=== PATIENT | male | born 1970 | race Caucasian/White ===

== ENCOUNTER 2016-05-08 03:14 | Emergency (ER) | payer BC ==
[~2016-05-08] VITALS: Ht 180.3 cm; Wt 87.0 kg
[2016-05-08 03:38] VITALS: BP 149/90; PULSE 64; RESP 25; TEMP 98.4; O2SAT 100
[2016-05-08 03:42] VITALS: BP 149/90; PULSE 70; RESP 25; O2SAT 100
[2016-05-08] MEDS ORDERED: SODIUM CHLOR 0.9% 1000 ML INJ 1,000 ML IV ONE (04:15)
[2016-05-08 04:16] LABS: AUTOMATED NEUTROPHIL # 3.2 TH/MM3 (1.8-7.7); BASOPHIL % 0.4 % (0.0-2.0); EOSINOPHIL # 0.1 TH/MM3 (0-0.4); HEMATOCRIT 42.9 % (39.0-51.0); HEMO FLAGS DIFF FINAL; LYMPH % 34.6 % (9.0-44.0); LYMPHOCYTE # 2.1 TH/MM3 (1.0-4.8); MEAN CELL VOLUME 93.4 FL (80.0-100.0); MEAN CORPUSCULAR HEMOGLOBIN 32.7 PG (27.0-34.0); MONO % 10.5 % (0.0-8.0); NEUT % 52.5 % (16.0-70.0); PLATELET COUNT 173 TH/MM3 (150-450); RED CELL DISTRIBUTION WIDTH 12.4 % (11.6-17.2)
[2016-05-08 04:27] LABS: APTT (PATIENT) 23.8 SEC (24.3-30.1); PROTHROMBIN TIME - PATIENT 10.5 SEC (9.8-11.6)
[2016-05-08 04:36] LABS: ALT (GPT) 30 U/L (12-78); ANION GAP 10 MEQ/L (5-15); AST (GOT) 28 U/L (15-37); BICARBONATE 24.9 MEQ/L (21.0-32.0); BLOOD UREA NITROGEN 24 MG/DL (7-18); CHLORIDE 106 MEQ/L (98-107); GLOMERULAR FILTRATION RATE 68 ML/MIN (>89); MAGNESIUM 1.9 MG/DL (1.5-2.5); POTASSIUM 3.6 MEQ/L (3.5-5.1); SODIUM (NA) 141 MEQ/L (136-145)
[2016-05-08 04:44] LABS: ALKALINE PHOSPHATASE 76 U/L (45-117); CREATINE KINASE 222 U/L (39-308); TOTAL BILIRUBIN ADULT 0.3 MG/DL (0.2-1.0)
--- NOTE | 2016-05-08 04:50 | RADRPT ---
EXAM DATE/TIME: 05/08/2016 04:21 [place] COMPARISON: No previous studies available for comparison. INDICATIONS : Shortness of breath. MEDICAL HISTORY : None. SURGICAL HISTORY : None. ENCOUNTER: Initial ACUITY: 1 day PAIN SCORE: 0/10 LOCATION: Bilateral chest FINDINGS: A single view of the chest demonstrates the lungs to be symmetrically aerated without evidence of mas s, infiltrate or effusion. The cardiomediastinal contours are unremarkable. Osseous structures are intact. CONCLUSION: No acute disease. Jt Sosa MD on May 08, 2016 at 4:48 Board Certified Radiologist. This report was verified electronically.
[2016-05-08 04:57] LABS: CKMB 1.6 NG/ML (0.5-3.6)
[2016-05-08] MEDS ORDERED: SODIUM CHLORID 0.9% 500 ML INJ 500 ML IV ONE (05:30)
--- NOTE | 2016-05-08 05:35 | PD ---
HPI Chief Complaint: Anxiety Time Seen by Provider: 03:37 Travel History International Travel<30 days: No Contact w/Intl Traveler<30days: No Traveled to known affect area: No History of Present Illness HPI The patient is a 46 year old male who presents to the [facility] emergency department with a history of reportedly having an upper respiratory infection, cough and congestion for the last 3 weeks. He reports that he purchased Delsym yesterday to help with the cough. He reports that he took it for the first time yesterday at 3 PM. Today 3 additional doses at separate intervals, however after the last dose he began to feel anxious with palpitations and generalized weakness. The patient called ambulance services and was transported into this facility. The patient had a blood sugar noted prior to arrival that was 127. The patient denies having any similar reactions to this previously. The patient denies any recent fevers, neck pain, chest pain, shortness of breath, abdominal pain, vomiting, diarrhea, urinary symptoms, or other neurologic symptoms. PFSH Past Medical History Narrative Medical The patient's past medical history is reportedly none. Medical History: Denies Significant Hx Tetanus Vaccination: Unknown Influenza Vaccination: No Past Surgical History Narrative Surgical The patient's past surgical history is reportedly none. Surgical History: No Previous Surgery Social History Alcohol Use: No Tobacco Use: No Substance Use: No Allergies-Medications (Allergen,Severity, Reaction): Uncoded Allergies: DELSYM (Adverse Reaction, Intermediate, 05/08/16) PT GET ANXIOUS Reported Meds & Prescriptions Reported Meds & Active Scripts Active No Active Prescriptions or Reported Medications Review of Systems Except as stated in HPI: all other systems reviewed are Neg General / Constitutional: No: Fever Eyes: No: Visual changes HENT: No: Headaches Cardiovascular: Positive: Palpitations, No: Chest Pain or Discomfort Respiratory: No: Shortness of Breath Gastrointestinal: No: Abdominal Pain Genitourinary: No: Dysuria Musculoskeletal: No: Pain Skin: No Rash Neurologic: Positive: Weakness (generalized weakness), No: Focal Abnormalities , Change in Mentation, Slurred Speech, Sensory Disturbance Psychiatric: No: Depression Endocrine: No: Polydipsia Hematologic/Lymphatic: No: Easy Bruising Physical Exam Narrative General: The patient is a well-developed well-nourished male in no acute distress.. Head and Neck exam: Head is normocephalic atraumatic. Eyes: Pupils are equal round and reactive to light. Nose: Midline septum with pink mucous membranes Mouth: Dentition unremarkable. Moist mucus membranes. Posterior oropharynx is not erythematous. No tonsillar hypertrophy. Uvula midline. Airway patent. Neck: No palpable lymphadenopathy. No nuchal rigidity. No thyromegaly. Cardiovascular: Regular rate and rhythm without murmurs, gallops, or rubs. No pulse deficit to the extremities on simultaneous auscultation and palpation of his radial artery. Lungs: Clear to auscultation bilaterally. No wheezes, rhonchi, or rales. Abdomen: Soft, without tenderness to palpation in all 4 quadrants of the abdomen. No guarding, rebound, or rigidity. Normal bowel sounds are audible. Extremities: No clubbing, cyanosis, or edema. 2+ pulses in all 4 extremities. No calf tenderness on palpation. Back: No spinous process tenderness to palpation. No costovertebral angle tenderness to palpation. Neurologic Exam: The patient is oriented to person, place, time, and situation. Cranial nerves 2 -12 were intact on exam. Strength is 5/5 in all 4 extremities. No sensory deficits noted. Skin Exam: No rash noted. Intact skin that is warm and dry. Data Data Last Documented VS Vital Signs Date Time Temp Pulse Resp B/P Pulse Ox O2 Delivery O2 Flow Rate FiO2 05/08/16 03:42 63 25 05/08/16 03:42 149/90 100 Room Air 05/08/16 03:38 98.4 Orders Complete Blood Count With Diff (05/08/16 04:01) Comprehensive Metabolic Panel (05/08/16 04:01) Creatine Kinase (Cpk) (05/08/16 04:01) Ckmb (Isoenzyme) Profile (05/08/16 04:01) Troponin I (05/08/16 04:01) Prothrombin Time / Inr (Pt) (05/08/16 04:01) Act Partial Throm Time (Ptt) (05/08/16 04:01) Lipase (05/08/16 04:01) Urinalysis - C+S If Indicated (05/08/16 04:01) Magnesium (Mg) (05/08/16 04:01) Alcohol (Ethanol) (05/08/16 04:01) Drug Screen, Random Urine (05/08/16 04:01) Thyroid Stimulating Hormone (05/08/16 04:01) Chest, Single Ap (05/08/16 04:01) Iv Access Insert/Monitor (05/08/16 04:01) Ecg Monitoring (05/08/16 04:01) Oximetry (05/08/16 04:01) Sodium Chlor 0.9% 1000 Ml Inj (Ns 1000 M (05/08/16 04:15) CKMB (05/08/16 03:50) CKMB% (05/08/16 03:50) Sodium Chlorid 0.9% 500 Ml Inj (Ns 500 M (05/08/16 05:30) Oral Rehydration (05/08/16 05:20) Labs Laboratory Tests Test 05/08/16 03:50 White Blood Count 6.0 TH/MM3 Red Blood Count 4.60 MIL/MM3 Hemoglobin 15.1 GM/DL Hematocrit 42.9 % Mean Corpuscular Volume 93.4 FL Mean Corpuscular Hemoglobin 32.7 PG Mean Corpuscular Hemoglobin 35.0 % Concent Red Cell Distribution Width 12.4 % Platelet Count 173 TH/MM3 Mean Platelet Volume 8.8 FL Neutrophils (%) (Auto) 52.5 % Lymphocytes (%) (Auto) 34.6 % Monocytes (%) (Auto) 10.5 % Eosinophils (%) (Auto) 2.0 % Basophils (%) (Auto) 0.4 % Neutrophils # (Auto) 3.2 TH/MM3 Lymphocytes # (Auto) 2.1 TH/MM3 Monocytes # (Auto) 0.6 TH/MM3 Eosinophils # (Auto) 0.1 TH/MM3 Basophils # (Auto) 0.0 TH/MM3 CBC Comment DIFF FINAL Differential Comment Prothrombin Time 10.5 SEC Prothromb Time International 1.0 RATIO Ratio Activated Partial 23.8 SEC Thromboplast Time Sodium Level 141 MEQ/L Potassium Level 3.6 MEQ/L Chloride Level 106 MEQ/L Carbon Dioxide Level 24.9 MEQ/L Anion Gap 10 MEQ/L Blood Urea Nitrogen 24 MG/DL Creatinine 1.15 MG/DL Estimat Glomerular Filtration 68 ML/MIN Rate Random Glucose 133 MG/DL Calcium Level 8.8 MG/DL Magnesium Level 1.9 MG/DL Total Bilirubin 0.3 MG/DL Aspartate Amino Transf 28 U/L (AST/SGOT) Alanine Aminotransferase 30 U/L (ALT/SGPT) Alkaline Phosphatase 76 U/L Total Creatine Kinase 222 U/L Creatine Kinase MB 1.6 NG/ML Troponin I LESS THAN 0.02 NG/ML Total Protein 7.2 GM/DL Albumin 3.6 GM/DL Lipase 307 U/L Thyroid Stimulating Hormone 3.070 uIU/ML 3rd Gen Ethyl Alcohol Level LESS THAN 3 MG/DL MDM Medical Decision Making Medical Screen Exam Complete: Yes Emergency Medical Condition: Yes Medical Record Reviewed: Yes Interpretation(s) Last Impressions Chest X-Ray 05/08/16 0401 Signed Impressions: Service Date/Time: Sunday, May 08, 2016 04:21 - CONCLUSION: No acute disease. Jt Sosa MD Differential Diagnosis Medication side effect, versus electrolyte abnormality, versus anxiety Narrative Course During the course of the patients emergency department visit, the patients history, examination, and differential diagnosis were reviewed with the patient. The patient had IV access obtained and blood work sent for analysis. The patient was placed on a cardiac catheterization technologist with oximetry and blood pressure monitoring. An EKG was done on arrival. The patient was noted on EKG to have a sinus rhythm of 72, QRS duration 117 ms with an incomplete right bundle ioana block. No acute ST segment elevation is noted. No acute ST segment depression. T waves are inverted in V1. The patient was provided normal saline 1 L IV fluid bolus. The patient was given an additional 500 mL bolus while being observed. The patient was started on oral rehydration therapy. The patients laboratory studies were reviewed and remarkable for a white count of 6, hemoglobin 15.1, platelets 173 with 10.5 monocytes. This is consistent with a viral upper respiratory infection. CMP is remarkable for a BUN of 24, glucose 133, cardiac enzymes are within normal limits. A pastry 07, TSH 3.070, PT PTT unremarkable, alcohol less than 3. Radiology studies were reviewed and remarkable for a chest x-ray that shows no acute abnormality. The patient's symptoms began to improve while being observed in the emergency department. The patient was instructed in the future to avoid Delsym as his symptoms are suspected to be related to a medication side effect. The patient is resting comfortably and feels better, is alert and in no distress. The patients results and examination findings were discussed with the patient. The repeat examination is unremarkable and benign. The history, exam, diagnostic testing, and current condition do not suggest any significant pathology to warrant further testing, continued ED treatment, admission, or surgical evaluation at this point. The vital signs have been stable. The patient does not have uncontrollable pain, intractable vomiting, or other significant symptoms. The patient's condition is stable and appropriate for discharge. The patient will pursue further outpatient evaluation with a primary care physician or other designated or consulting physician as indicated in the discharge instructions. The patient expressed understanding and was agreeable with this plan. Diagnosis Primary Impression: Medication side effect Qualified Code: T88.7XXA - Medication side effect, initial encounter Additional Impression: Generalized weakness Referrals: Primary Care Physician 2 days Patient Instructions: General Instructions Additional Instructions: Avoid Delsym in the future. Scripts No Active Prescriptions or Reported Meds Disposition: 01 DISCHARGE HOME Condition: Stable Lalita Acosta MD May 08, 2016 05:35
[2016-05-08 06:02] VITALS: BP 134/75; PULSE 60; RESP 18; TEMP 98.4; O2SAT 100
[2016-05-08 06:42] VITALS: BP 137/77; PULSE 71; RESP 18; TEMP 98.4; O2SAT 100
--- NOTE | 2016-05-08 16:36 | EKG ---
Date Performed: 05/08/2016 Time Performed: 03:36:01 PTAGE: 46 years EKG: Sinus rhythm INCOMPLETE RIGHT BUNDLE BRANCH BLOCK BORDERLINE ECG NO PREVIOUS TRACING DOCTOR: Marleen Vega Interpretating Date/Time 05/08/2016 16:33:57
== END 2016-05-08 06:51 | disposition expired ==
LOC: NEPC 03:14
DX: T48.3X5A Adverse effect of antitussives, initial encounter (principal); R53.1 Weakness; Y92.009 Unspecified place in unspecified non-institutional (private) residence as the place of occurrence of the external cause
CPT/HCPCS: 71010; 80053; 80320; 82550; 82552; 83690; 83735; 84443; 84484; 85025; 85610; 85730; 93005; 99285; J7030; J7040